=== PATIENT | female | born 1975 | race Caucasian/White ===

== ENCOUNTER → 2016-12-22 | Outpatient (CLI) | payer OTHER ==
--- NOTE | 2016-12-22 11:32 | REP ---
Clinical: Pain. Technique: AP and lateral views of the sacrum and coccyx. Findings: The sacrum and coccyx are intact. There is no evidence for acute fracture or subluxation. The sacroiliac joints are essentially normal for age. Impression: Normal sacrum and coccyx radiographs. Signed by Venkat Oconnor MD 12/22/2016 11:24 A
== END ==
LOC: M LRY 10:54
PROVIDERS: ATTEND Physician Assistant
DX: M53.3 Sacrococcygeal disorders, not elsewhere classified (principal)

== ENCOUNTER 2017-04-27 08:45 | Outpatient (RCR) | payer OTHER | END 2017-04-28 | disposition home or self-care (01) | LOC: M PT 08:45 | PROVIDERS: ATTEND Physician Assistant | DX: Z51.89 Encounter for other specified aftercare (principal); M53.3 Sacrococcygeal disorders, not elsewhere classified ==

== ENCOUNTER 2017-07-09 18:29 | Inpatient (IN) | payer OTHER ==
[~2017-07-09] VITALS: Ht 160 cm; Wt 93.6 kg
[2017-07-09] MEDS ORDERED: MULTCAP8 PO (18:41)
[2017-07-09 19:45] LABS: MEAN CORPUSCULAR HEMOGLOBIN 31.4 pg (27.0-33.0); MEAN CORPUSCULAR HGB CONC 35.7 g/dl (32.0-36.5); RED CELL DISTRIBUTION WIDTH 12.2 % (11.5-14.5); WHITE BLOOD COUNT 8.6 K/mm3 (4.0-10.0)
[2017-07-09 19:58] LABS: METHADONE URINE NEGATIVE (NEGATIVE)
[2017-07-09 20:10] LABS: ALBUMIN 4.2 GM/DL (3.2-5.2); ALKALINE PHOSPHATASE 79 U/L (45-117); ALT/SGPT 24 U/L (12-78); ANION GAP 7 MEQ/L (8-16); AST/SGOT 20 U/L (15-37); BILIRUBIN,DIRECT 0.1 MG/DL (0.0-0.2); BILIRUBIN,TOTAL 0.6 MG/DL (0.2-1.0); BLOOD UREA NITROGEN 9 MG/DL (7-18); CALCIUM LEVEL 8.9 MG/DL (8.5-10.1); CARBON DIOXIDE LEVEL 27 MEQ/L (21-32); CHLORIDE LEVEL 105 MEQ/L (98-107); CREATININE FOR GFR 0.71 MG/DL (0.55-1.02); GLOMERULAR FILTRATION RATE > 60.0 (>60); GLUCOSE, FASTING 85 MG/DL (70-105); POTASSIUM SERUM 3.8 MEQ/L (3.5-5.1); SODIUM LEVEL 139 MEQ/L (136-145); TOTAL PROTEIN 7.7 GM/DL (6.4-8.2)
[2017-07-09] MEDS ORDERED: VITMTA PO (20:31)
[2017-07-09] MEDS ORDERED: MAALOX 30 ML SUSP *UDC PO PRN (21:30)
[2017-07-09] MEDS ORDERED: ACETAMINOPHEN TAB 650MG DOSE (2X325MG) PO PRN (21:30)
[2017-07-09] MEDS ORDERED: MOM 30ML SUSPENSION UDC PO PRN (21:30)
[2017-07-09] MEDS ORDERED: traZODone 50 MG TAB PO PRN (21:30)
[2017-07-10 00:38] VITALS: BP 135/78
[2017-07-10] MEDS: MULTIVITAMINS/MINERALS THERAP 1 TAB PO SCH (08:47)
--- NOTE | 2017-07-10 08:59 | HPEPDOC ---
Medical History and Physical Date of Admission Jul 09, 2017 at 21:17 History and Physical PCP: Ishan MORRISON ATTENDING: Dr. Korey Faulkner HPI: 41 yoF admitted to [facility] for unspecified depressive disorder, being medically examined today. No acute medical complaints today. Denies any fevers, chills, weakness, fatigue, ERWIN, CP, SOB, cough, palpitations, abdominal pain, N/V /D or changes in bowel or bladder habits. PMHx: Vitamin D deficiency Depression Anxiety PSHX: Denies SOCHX: Resides in: [facility] Marital Status: Kids: 4 Employment: Unemployed Tobacco use: Denies ETOH: One drink or less per month Illicit Drugs: Denies IV Drug Use: Denies Tattoos done unprofessionally: Denies FAMHX: Mother: Alive, well Father: Alive, polycystic kidney disease Siblings: One brother Alive, bipolar disorder Children: Alive, well Unexpected deaths due to medical reasons: None. ROS: As noted in HPI, otherwise 11pt ROS of systems reviewed and remarkable only for LMP unknown. PE: GEN: 41 yo F, appears stated age. Well-nourished, well developed. No acute distress. Alert and oriented x 3. Pleasant, interactive. HEENT: Normocephalic, atraumatic. Pupils are equal, round, and reactive to light. Extraocular movements are intact. No nystagmus appreciated. Sclera are nonicteric. Conjunctiva without injection. Nose midline. Nasal turbinates without bogginess. EACs both patent BL. TMs both visualized and tobin with good cone of light, no bulging or erythema. No facial asymmetry. Moist mucous membranes. Dentition fair. Pharynx pink and moist, no cobblestoning. Neck supple , trachea midline. No lymphadenopathy or thyromegaly appreciated. CHEST: Regular rate and rhythm, +S1, +S2 LUNGS: Clear to auscultation bilaterally. No wheezes, rales, or rhonchi. Breathing appears symmetric and easy. Patient is speaking in full sentences. No accessory muscle use. ABD: Round, soft, non-tender, non-distended. +Bowel sounds throughout. No rebound or guarding. No costovertebral angle tenderness. EXT: Pulses 2+ bilaterally dorsalis pedis and radial. No lower extremity edema appreciated. SKIN: [place], dry, warm. Capillary refill <2sec. No rashes. NEURO: Alert and oriented x 3. Cranial nerves III-XII are intact. No focal deficits appreciated. EKG: pending A&P: 41 yoF admitted to [facility] for unspecified depressive disorder 1. Psych. Plan per Psychiatry. Obtain baseline EKG to assure the safety of psychiatric medications as they can prolong the QT interval. 2. Vitamin D deficiency. Patient takes [id number] supplement daily. Update vitamin D level. 3. Add hCG to labs. 4. Follow up with PCP on discharge. 5. Staff member Saige present throughout exam. Vital Signs Vital Signs Date Time Temp Pulse Resp B/P (MAP) Pulse Ox O2 Delivery O2 Flow Rate FiO2 07/10/17 00:38 98.1 66 20 135/78 (97) 99 Room Air Laboratory Data Labs 24H Laboratory Tests 2 07/09/17 19:25: Urine Amphetamines Screen NEGATIVE, Urine Benzodiazepines Screen NEGATIVE, Urine Opiates Screen NEGATIVE, Urine Methadone Screen NEGATIVE, Urine Barbiturates Screen NEGATIVE, Urine Phencyclidine Screen NEGATIVE, Urine Cocaine Metabolite Screen NEGATIVE, Urine Cannabinoids Screen NEGATIVE 07/09/17 19:26: Anion Gap 7L, Glomerular Filtration Rate > 60.0, Calcium Level 8.9, Aspartate Amino Transf (AST/SGOT) 20, Alanine Aminotransferase (ALT/SGPT) 24, Alkaline Phosphatase 79, Total Bilirubin 0.6, Direct Bilirubin 0.1, Total Protein 7.7, Albumin 4.2, Albumin/Globulin Ratio 1.20, Thyroid Stimulating Hormone (TSH) 1.940, Salicylates Level < 1.7L, Acetaminophen Level < 2.0L, Ethyl Alcohol Level < 0.003 CBC/BMP Laboratory Tests 07/09/17 19:26 Red Blood Count 4.51, Mean Corpuscular Volume 88.0, Mean Corpuscular Hemoglobin 31.4, Mean Corpuscular Hemoglobin Concent 35.7, Red Cell Distribution Width 12.2 Home Medications Scheduled Multivitamins *[facility] STOCKED* (Thera M Plus *[facility] STOCKED*) 1 Tab Tab, 1 TAB PO DAILY Allergies Coded Allergies: No Known Allergies (Unverified , 07/09/17) Katie Earl Jul 10, 2017 08:59 Tammy Rodríguez Jul 10, 2017 12:50
[2017-07-10] MEDS ORDERED: VITAMIN D 50,000 UNITS CAPSULE (ERGOCALCIFEROL 1.25MG) PO SCH (09:00)
[2017-07-10 09:08] LABS: CONTROL LINE HCG INT CTR LINE PRESENT
--- NOTE | 2017-07-10 09:36 | MHHPEPDOC ---
[facility] [place] History & Physical History and Physical DATE OF ADMISSION: Jul 09, 2017 at 21:17 LEGAL STATUS AT ADMISSION: 9.39 CHIEF COMPLAINT: "I'm just so tired". HISTORY OF THE PRESENT ILLNESS: Patient is a 41-year-old female, who presented to ED after argument with the day before. She asked him to leave due to his drinking. The next day she was sad and anxious and thought to kill herself by overdosing on Nyquil. She has 4 children who were not in the home at the time. Instead of harming self she came to us for help. This is her first psychiatric admission. Pt is to [place] for 20 years, who is recently retired from duty. He served in the [employer] for 17 years with 2 deployments to [place] and 1 to [place]. While on deployment he missed his last promotion which was a disappointment to him. Pt reports a noticeable increase in drinking after he returned home from each deployment. They had an agreement that he would drink 1- 2 beers on work nights and 4-5 on weekends. She suspects he drinks more than what is agreed as she observes him slurring his words, not always walking steadily, appears more intoxicated than he should with only 2 beers. She reports he drinks on an empty stomach and often seems like "he has had one too many". Pt and attend marriage counseling at [facility]. Pt does not like husbands drinking at all. Pt and have 2 biological children and 2 foster children who are biological siblings. pt attends [employer] faithfully with the children. She wants only good things for her family and shows much insight into husbands situation. They both came from broken homes and do not want to put their children through that. She recognizes that he may have PTSD and acknowledges that he "keeps everything in side". Pt is often "overwhelmed" by duties of raising 4 children and 1 with special needs who has cognitive impairment and suffered lots of trauma early in life. She does not sleep well. She has to fall asleep before her or his snoring will prevent her from falling asleep. Pt denies any physical abuse by toward her or children has ever occurred in their home. PSYCHIATRIC REVIEW OF SYSTEMS: Affective: calm Anxiety: moderate Trauma: denies physical and sexual abuse. Psychosis: denies Personally: easy to engage, pleasant. PAST PSYCHIATRIC HISTORY: Prior Psychiatric Disorder: none, in Marital counseling Outpatient Treatment:counseling, 1 year Suicidal/Self injurious: denies. Psychotropic Medication History: none. ALLERGIES: Please see below. FAMILY PSYCHIATRIC HISTORY: pt reports brother Eder with Bipolar disorder, Psychosis. Mom - depression and anxiety. ('s side has alcoholism - grandfather, father and cousin of Seferino. ) no family h/o suicide. SOCIAL HISTORY: Early Relations/development: 3 older brothers and 1 younger brother, parents when she was young. Raised by mother. 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 . Legal: none Martial: for 20 years. 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 Supports: friends, her [employer] Abuse/trauma:denies but was affected by parents divorce. SUBSTANCE ABUSE HISTORY: none. PAST MEDICAL/SURGICAL HISTORY: PE: GEN: 41 yo F, appears stated age. Well-nourished, well developed. No acute distress. Alert and oriented x 3. Pleasant, interactive. HEENT: Normocephalic, atraumatic. Pupils are equal, round, and reactive to light. Extraocular movements are intact. No nystagmus appreciated. Sclera are nonicteric. Conjunctiva without injection. Nose midline. Nasal turbinates without bogginess. EACs both patent BL. TMs both visualized and tobin with good cone of light, no bulging or erythema. No facial asymmetry. Moist mucous membranes. Dentition fair. Pharynx pink and moist, no cobblestoning. Neck supple , trachea midline. No lymphadenopathy or thyromegaly appreciated. CHEST: Regular rate and rhythm, +S1, +S2 LUNGS: Clear to auscultation bilaterally. No wheezes, rales, or rhonchi. Breathing appears symmetric and easy. Patient is speaking in full sentences. No accessory muscle use. ABD: Round, soft, non-tender, non-distended. +Bowel sounds throughout. No rebound or guarding. No costovertebral angle tenderness. EXT: Pulses 2+ bilaterally dorsalis pedis and radial. No lower extremity edema appreciated. SKIN: [place], dry, warm. Capillary refill <2sec. No rashes. NEURO: Alert and oriented x 3. Cranial nerves III-XII are intact. No focal deficits appreciated. EKG: pending A&P: [address] [facility] for unspecified depressive disorder 1. Psych. Plan per Psychiatry. Obtain baseline EKG to assure the safety of psychiatric medications as they can prolong the QT interval. 2. Vitamin D deficiency. Patient takes [id number] supplement daily. Update vitamin D level. 3. Add hCG to labs. 4. Follow up with PCP on discharge. NO SURGERIES. VITAL SIGNS: Temperature 98.1 , pulse 66, respiratory rate 20, blood pressure 135/78, pulse oximetry 99 % on room air. MENTAL STATUS EXAMINATION: General appearance: Patient is a 41-year old female, who is short, light colored hair, fair skin in hospital attire, good eye contact. Speech: clear, spontaneous Thought processes: goal directed Thought content: appropriate. Abstract reasoning and computation: good. Description of associations: good. Description of abnormal or psychotic thoughts: no longer thinking of suicide, denies psychotic symptoms, no mood instability. Judgment: good. Insight: good Orientation: well oriented x 3. Recent and remote memory: grossly intact. Attention span and concentration: good. Fund of knowledge: full. Mood: "sad" "tired" "overwhelmed" Affect: anxious. DIAGNOSES: 1. Premenstrual dysphoric disorder (PMDD) 2. Vitamin D deficiency. ASSESSMENT: Pt presents as a very caring and intelligent woman. She identifies a pattern in her as well as one in herself. For herself she can identify getting angry about 1-1.5 weeks prior to menses. In her she notices each month he becomes more withdrawn, displays more negative thinking and hypersensitivity at certain times of the month. If he is not drinking he is compulsive about playing video games. "He has an addictive personality". He was screened by the after each deployment and upon after 17 years. He then enrolled in the [employer] in order to qualify for a pension. He has not been treated or diagnosed with PTSD. He did see a counselor for a brief time in 2011 after returning from deployment. Pt denies anhedonia. Reports sleep problems of difficulty maintaining sleep after 4 hours. Awakens at every little sound due to children. Pt was found to have low Vitamin D and did take a weekly supplement but has gotten off of this. She agrees she needs to resume it. Pt reports poor energy, poor concentration She continues to maintain activities and interests. She reports a 55 lb weight increase over 6 years having moved from [place] to [place]. She states she craves sugar where she never did before. Pt reports they have a preparator for their home and are hoping to return to [place] in August. Pt encouraged to begin now to secure follow up once she moves. Pt hopes to be prepared for discharge on Monday. We will contact for family meeting that day and if she is doing well she may leave at that time. PROBLEM LIST: 1. risk for suicide 2. depression 3. anxiety INITIAL TREATMENT PLAN: 1. Patient was admitted on a 2. Complete history was obtained. 3. With patients permission, family will be contacted and database will be expanded. 4. Patients medication regimen will be reviewed and changed accordingly. 5. Patient will be provided with protected environment. 6. Patient will be treated with individual, group, and milieu therapies. 7. Patient will receive supportive psych-education. 8. Discharge planning will commence immediately. 9. Outpatient follow-up treatment will be strongly recommended. 10. The initial treatment plan will focus initially on: * see above ESTIMATED LENGTH OF STAY:6 DAYS. TIME SPENT COUNSELING AND COORDINATING INITIAL CARE: 50 minutes. Laboratory Data 24H Labs Laboratory Tests 2 07/09/17 19:25: Urine Amphetamines Screen NEGATIVE, Urine Benzodiazepines Screen NEGATIVE, Urine Opiates Screen NEGATIVE, Urine Methadone Screen NEGATIVE, Urine Barbiturates Screen NEGATIVE, Urine Phencyclidine Screen NEGATIVE, Urine Cocaine Metabolite Screen NEGATIVE, Urine Cannabinoids Screen NEGATIVE 07/09/17 19:26: Anion Gap 7L, Glomerular Filtration Rate > 60.0, Calcium Level 8.9, Aspartate Amino Transf (AST/SGOT) 20, Alanine Aminotransferase (ALT/SGPT) 24, Alkaline Phosphatase 79, Total Bilirubin 0.6, Direct Bilirubin 0.1, Total Protein 7.7, Albumin 4.2, Albumin/Globulin Ratio 1.20, Thyroid Stimulating Hormone (TSH) 1.940, Human Chorionic Gonadotropin, Qual NEGATIVE, Salicylates Level < 1.7L, Acetaminophen Level < 2.0L, Ethyl Alcohol Level < 0.003 CBC/BMP Laboratory Tests 07/09/17 19:26 Red Blood Count 4.51, Mean Corpuscular Volume 88.0, Mean Corpuscular Hemoglobin 31.4, Mean Corpuscular Hemoglobin Concent 35.7, Red Cell Distribution Width 12.2 Medications Scheduled Multivitamins *[facility] STOCKED* (Thera M Plus *[facility] STOCKED*) 1 Tab Tab, 1 TAB PO DAILY, (Reported) Allergies Coded Allergies: No Known Allergies (Unverified , 07/09/17) Tammy Rodríguez Jul 10, 2017 09:35
[2017-07-10] MEDS ORDERED: hydrOXYzine 25 MG TAB PO PRN (12:45)
[2017-07-10] MEDS: CitaloPRAM (CeleXA) 10 MG TABLET PO SCH (13:14)
[2017-07-10 18:00] VITALS: BP 123/70
--- NOTE | 2017-07-10 18:39 | ECGEPIP ---
Stationary ECG Study [facility] Test Date: 2017-07-10 Pat Name: NOLAN PINO Department: Room: [place] [address] Gender: F Editorial Manager: NICOL : 1975 Requested By: Katie Earl Order Number: [id number] Reading MD: Korey Faulkner Measurements Intervals [place] Rate: 78 P: 27 RI: 168 QRS: 23 QRSD: 92 T: 22 QT: 377 QTc: 430 Interpretive Statements SINUS RHYTHM previous tracing not on file Electronically Signed On 07-10-2017 18:39:09 EDT by Korey Faulkner
[2017-07-10] MEDS: hydrOXYzine 50 MG TAB PO SCH (21:00)
[2017-07-11 06:57] VITALS: BP 124/71
[2017-07-11] MEDS: MULTIVITAMINS/MINERALS THERAP 1 TAB PO SCH (08:45)
[2017-07-11] MEDS: CitaloPRAM (CeleXA) 10 MG TABLET PO SCH (08:46)
--- NOTE | 2017-07-11 13:28 | MHIPNPDOC ---
[facility] Progress Note Progress Note DATE OF SERVICE: 07/11/17 HISTORY: day 3 of admission for SI related to depression. VITAL SIGNS: See below. NEW TEST RESULTS: na CURRENT MEDICATIONS: See below. MENTAL STATUS EXAMINATION: General appearance: Patient is a 41-year old female, who is short, light colored hair, fair skin in hospital attire, good eye contact. Speech: clear, spontaneous Thought processes: goal directed Thought content: appropriate. Abstract reasoning and computation: good. Description of associations: good. Description of abnormal or psychotic thoughts: no longer thinking of suicide, denies psychotic symptoms, no mood instability. Judgment: good. Insight: good Orientation: well oriented x 3. Recent and remote memory: grossly intact. Attention span and concentration: good. Fund of knowledge: full. Mood: slowly improving, less depressed,"concerned" Affect: has range ASSESSMENT: Pt participated in treatment planning meeting. She is aware we are going to invite her to come in for a meeting prior to her discharge. Staff is to prepare information on Vivian for her. pt is using hydroxyzine with relief. Sleep was good last night. She is eating at meal time. Hygiene is good. Misses her children. DIAGNOSES: 1. Premenstrual dysphoric disorder (PMDD) 2. Vitamin D deficiency. MANAGEMENT PLAN: continue to monitor Celexa for side effects. Will raise dose to 20 mg if she does okay over 48 hours. Denies side effects so far. Provide hydroxyzine as needed for anxiety. TIME SPENT: 25 minutes. Vital Signs Vital Signs Date Time Temp Pulse Resp B/P (MAP) Pulse Ox O2 Delivery O2 Flow Rate FiO2 07/11/17 06:57 97.4 92 18 124/71 (88) Room Air 07/10/17 00:38 99 Current Medications Current Medications Acetaminophen (Tylenol Tab) 650 mg Q6HP PRN PO HEADACHE or DISCOMFORT; Start at 21:30; Stop 08/08/17 at 21:29 Al Hydrox/Mg Hydrox/Simethicone (Mylanta) 30 ml Q4HP PRN PO HEARTBURN/ INDIGESTION; Start 07/09/17 at 21:30; Stop 08/08/17 at 21:29 Citalopram Hydrobromide (CeleXA) 15 mg DAILY PO Last administered on 07/11/17t 08:46; Start 07/10/17 at 09:00; Stop 08/09/17 at 08:59 Home Med (Med Rec Complete!) ASDIRECTED XX ; Start 07/09/17 at 20:45; Stop 08/15 at 20:45; Status DC Hydroxyzine HCl (Atarax) 25 mg Q6HP PRN PO ANXIETY Last administered on 18:51; Start 07/10/17 at 12:45; Stop 08/09/17 at 12:44 Hydroxyzine HCl (Atarax) 50 mg QHS PO ; Start 07/10/17 at 21:00; Stop 08/09/17 at 20:59 Magnesium Hydroxide (Milk Of Magnesia) 30 ml DAILYPRN PRN PO CONSTIPATION; Start 07/09/17 at 21:30; Stop 08/08/17 at 21:29 Multivitamins (Theragram-M) 1 tab DAILY PO Last administered on 07/11/17 08:45 ; Start 07/10/17 at 09:00; Stop 08/09/17 at 08:59 Trazodone HCl (Desyrel) 50 mg QHSP PRN PO INSOMNIA; Start 07/09/17 at 21:30; Stop 08/08/17 at 21:29 Vitamin D (Drisdol) 50,000 units Mo@09 PO Last administered on 07/10/17 12:13 ; Start 07/10/17 at 09:00; Stop 08/09/17 at 08:59 Allergies Coded Allergies: No Known Allergies (Unverified , 07/09/17) Tammy Rodríguez Jul 11, 2017 13:28
[2017-07-11 18:00] VITALS: BP 122/78
[2017-07-11] MEDS: hydrOXYzine 50 MG TAB PO SCH (21:15)
[2017-07-12 06:50] VITALS: BP 131/84
--- NOTE | 2017-07-12 08:57 | MHIPNPDOC ---
[facility] Progress Note Progress Note DATE OF SERVICE: 07/12/17 HISTORY: day 4 of admission for SI due to stressors. VITAL SIGNS: See below. NEW TEST RESULTS: na CURRENT MEDICATIONS: See below. MENTAL STATUS EXAMINATION: General appearance: Patient is a 41-year old female, who is short, light colored hair, fair skin in hospital attire, good eye contact. Speech: clear, spontaneous Thought processes: goal directed Thought content: appropriate. Abstract reasoning and computation: good. Description of associations: good. Description of abnormal or psychotic thoughts: no longer thinking of suicide, denies psychotic symptoms, no mood instability. Judgment: good. Insight: good Orientation: well oriented x 3. Recent and remote memory: grossly intact. Attention span and concentration: good. Fund of knowledge: full. Mood: euthymic Affect: broad DIAGNOSES: 1. Premenstrual dysphoric disorder (PMDD) 2. Vitamin D deficiency by history ASSESSMENT: Pt has reported during admission process that she has concerns about feeling safe at home. She denies any physical abuse toward her or the children by her . She was mostly fearful of her own thoughts and that she might act on drinking excessive amounts of Nyquil. She said she actually went and stared at the Nyquil in the medicine cabinet. Today she does not fear she will do anything whatsoever to endanger herself or those around her. She reports benefit from hospitalization and group therapy. She also relies on her silverio to get her through difficult situations. MANAGEMENT PLAN: continue to monitor mood improvement, decreased anxiety, provide support for healthy communication with . pt will likely be discharged on Monday after family meeting. she feels she is approaching readiness but continues to benefit from group therapy and peer support. continue close observation. TIME SPENT: minutes. Vital Signs Vital Signs Date Time Temp Pulse Resp B/P (MAP) Pulse Ox O2 Delivery O2 Flow Rate FiO2 07/12/17 06:50 98.3 69 16 131/84 (100) Room Air 07/10/17 00:38 99 Current Medications Current Medications Acetaminophen (Tylenol Tab) 650 mg Q6HP PRN PO HEADACHE or DISCOMFORT; Start at 21:30; Stop 08/08/17 at 21:29 Al Hydrox/Mg Hydrox/Simethicone (Mylanta) 30 ml Q4HP PRN PO HEARTBURN/ INDIGESTION; Start 07/09/17 at 21:30; Stop 08/08/17 at 21:29 Citalopram Hydrobromide (CeleXA) 15 mg DAILY PO Last administered on 07/11/17 08:46; Start 07/10/17 at 09:00; Stop 07/12/17 at 08:53; Status DC Citalopram Hydrobromide (CeleXA) 20 mg DAILY PO ; Start 07/12/17 at 09:00; Stop 08/11/17 at 08:59; Status UNV Home Med (Med Rec Complete!) ASDIRECTED XX ; Start 07/09/17 at 20:45; Stop 08/15 at 20:45; Status DC Hydroxyzine HCl (Atarax) 25 mg Q6HP PRN PO ANXIETY Last administered on 18:51; Start 07/10/17 at 12:45; Stop 08/09/17 at 12:44 Hydroxyzine HCl (Atarax) 50 mg QHS PO Last administered on 07/11/17 21:15; Start 07/10/17 at 21:00; Stop 08/09/17 at 20:59 Magnesium Hydroxide (Milk Of Magnesia) 30 ml DAILYPRN PRN PO CONSTIPATION; Start 07/09/17 at 21:30; Stop 08/08/17 at 21:29 Multivitamins (Theragram-M) 1 tab DAILY PO Last administered on 07/11/17 08:45 ; Start 07/10/17 at 09:00; Stop 08/09/17 at 08:59 Trazodone HCl (Desyrel) 50 mg QHSP PRN PO INSOMNIA; Start 07/09/17 at 21:30; Stop 08/08/17 at 21:29 Vitamin D (Drisdol) 50,000 units Mo@09 PO Last administered on 07/10/17 12:13 ; Start 07/10/17 at 09:00; Stop 08/09/17 at 08:59 Allergies Coded Allergies: No Known Allergies (Unverified , 07/09/17) Tammy Rodríguez Jul 12, 2017 08:57
[2017-07-12] MEDS: MULTIVITAMINS/MINERALS THERAP 1 TAB PO SCH (09:59)
[2017-07-12] MEDS: CitaloPRAM (CeleXA) 20 MG TAB PO SCH (10:00)
[2017-07-12 18:00] VITALS: BP 163/91
[2017-07-12] MEDS: hydrOXYzine 50 MG TAB PO SCH (21:28)
[2017-07-13 06:25] VITALS: BP 136/80
--- NOTE | 2017-07-13 08:48 | MHIPNPDOC ---
[facility] Progress Note Progress Note DATE OF SERVICE: 07/13/17 HISTORY: day 5 of admission for SI after disagreement with . VITAL SIGNS: See below. NEW TEST RESULTS: na CURRENT MEDICATIONS: See below. MENTAL STATUS EXAMINATION: General appearance: Patient is a 41-year old female, who is short, light colored hair, fair skin in hospital attire, good eye contact. Speech: clear, spontaneous Thought processes: goal directed Thought content: appropriate. Abstract reasoning and computation: good. Description of associations: good. Description of abnormal or psychotic thoughts: no longer thinking of suicide, denies psychotic symptoms, no mood instability. Judgment: good. Insight: good Orientation: well oriented x 3. Recent and remote memory: grossly intact. Attention span and concentration: good. Fund of knowledge: full. Mood: euthymic Affect: broad DIAGNOSES: 1. Premenstrual dysphoric disorder (PMDD) 2. Vitamin D deficiency by history ASSESSMENT: visible in milieu, attending programming, coloring with peers, socializing appropriately. Pt reports good rest. Continues to tolerate Celexa well. Jake SI. Hygiene is good. Pt is not using hydroxyzine for sleep every night. MANAGEMENT PLAN: Plan is for discharge tomorrow after family meeting at 10 a.m. Pt will fu with PCP for meds and already has marital counseling scheduled. It is also recommended she attend [facility] for support and insight into living with alcohol within the family. no hydroxyzine use for several days. TIME SPENT: 15 minutes. Vital Signs Vital Signs Date Time Temp Pulse Resp B/P (MAP) Pulse Ox O2 Delivery O2 Flow Rate FiO2 07/13/17 06:25 98.2 72 18 136/80 (98) 07/12/17 06:50 Room Air 07/10/17 00:38 99 Current Medications Current Medications Acetaminophen (Tylenol Tab) 650 mg Q6HP PRN PO HEADACHE or DISCOMFORT; Start at 21:30; Stop 08/08/17 at 21:29 Al Hydrox/Mg Hydrox/Simethicone (Mylanta) 30 ml Q4HP PRN PO HEARTBURN/ INDIGESTION; Start 07/09/17 at 21:30; Stop 08/08/17 at 21:29 Citalopram Hydrobromide (CeleXA) 15 mg DAILY PO Last administered on 07/11/17t 08:46; Start 07/10/17 at 09:00; Stop 07/12/17 at 08:53; Status DC Citalopram Hydrobromide (CeleXA) 20 mg DAILY PO Last administered on 07/12/17 10:00; Start 07/12/17 at 09:00; Stop 08/11/17 at 08:59 Home Med (Med Rec Complete!) ASDIRECTED XX ; Start 07/09/17 at 20:45; Stop 08/15 at 20:45; Status DC Hydroxyzine HCl (Atarax) 25 mg Q6HP PRN PO ANXIETY Last administered on 18:51; Start 07/10/17 at 12:45; Stop 08/09/17 at 12:44 Hydroxyzine HCl (Atarax) 50 mg QHS PO Last administered on 07/12/17 21:28; Start 07/10/17 at 21:00; Stop 08/09/17 at 20:59 Magnesium Hydroxide (Milk Of Magnesia) 30 ml DAILYPRN PRN PO CONSTIPATION; Start 07/09/17 at 21:30; Stop 08/08/17 at 21:29 Multivitamins (Theragram-M) 1 tab DAILY PO Last administered on 07/12/17 09:59 ; Start 07/10/17 at 09:00; Stop 08/09/17 at 08:59 Trazodone HCl (Desyrel) 50 mg QHSP PRN PO INSOMNIA; Start 07/09/17 at 21:30; Stop 08/08/17 at 21:29 Vitamin D (Drisdol) 50,000 units Mo@09 PO Last administered on 07/10/17 12:13 ; Start 07/10/17 at 09:00; Stop 08/09/17 at 08:59 Allergies Coded Allergies: No Known Allergies (Unverified , 07/09/17) Tammy Rodríguez Jul 13, 2017 08:48
[2017-07-13] MEDS: CitaloPRAM (CeleXA) 20 MG TAB PO SCH (09:17)
[2017-07-13] MEDS: MULTIVITAMINS/MINERALS THERAP 1 TAB PO SCH (09:17)
[2017-07-13 18:00] VITALS: BP 139/74
[2017-07-13] MEDS: hydrOXYzine 50 MG TAB PO SCH (22:03)
[2017-07-14 06:49] VITALS: BP 133/82
[2017-07-14] MEDS: MULTIVITAMINS/MINERALS THERAP 1 TAB PO SCH (08:54)
[2017-07-14] MEDS: CitaloPRAM (CeleXA) 20 MG TAB PO SCH (08:54)
[2017-07-14] MEDS ORDERED: HYDR-3363 PO (09:03)
[2017-07-14] MEDS ORDERED: HYDRO50TAB PO (09:03)
[2017-07-14] MEDS ORDERED: CELE20TA PO (09:03)
--- NOTE | 2017-07-14 09:04 | MHDSPDOC ---
[facility] Discharge Summary Discharge Summary DATE OF ADMISSION: Jul 09, 2017 at 21:17 DATE OF DISCHARGE: Jul 14, 2017 DISCHARGE DIAGNOSES: PMDD Vitamin D deficiency REASON FOR ADMISSION: pt became overwhelmed at home and was upset at . considered killing herself with an overdose of Nyquil. Came to ED for evaluation and was admitted. CONSULTANTS INVOLVED: na TREATMENT AND PROGRESS ON THE UNIT : pt reports stressors at home related to raising 4 children. 2 are special needs. works FT and drinks frequently after work. They have an agreement about how much he should drink so he can be helpful when at home. Pt does not feel he has been honoring the agreement and is drinking more than she is comfortable with. They have been in marital counseling for some time already. This is the first psychiatric admission for this patient. HOSPITAL COURSE: pt was agreeable to SSRI and anxiolytic medication. She enjoyed good rest and attended therapeutic programming. She participated in treatment planning and discharge planning. She attended well to ADL's and took medication as prescribed. there were not issues with challenging behaviors. She verbalized a benefit to the skills she was talking about and hearing discussed in groups. She has a strong silverio and this is beneficial to her as well. DISCHARGE ASSESSMENT: during the family meeting prior to discharge she was able to verbalize her concerns to her . staff stressed that due to minor children being at home it is necessary for someone to take over in case Lary should become ill or be unable to function in her role due to illness or absence. The couple could have easily had an argument about the drinking but commercial loan underwriter interceded to stress safety as the concern and that they need to take full advantage of their therapy sessions to problem solve these issues. feels that even 1 drink makes his angry. They will need to sort this out in therapy. Pt is not suicidal or homicidal. She is looking forward to the reunion with her children but knows her life will become hectic soon after coming home. She is reminded to take time for herself and to keep her life balanced with relaxation and time for herself as a reasonable expectation. Pt had no questions about her medications. MENTAL STATUS EXAMINATION ON DISCHARGE: General appearance: Patient is a 41-year old female, who is short, light colored hair, fair skin in hospital attire, good eye contact. Speech: clear, spontaneous Thought processes: goal directed Thought content: appropriate. Abstract reasoning and computation: good. Description of associations: good. Description of abnormal or psychotic thoughts: no longer thinking of suicide, denies psychotic symptoms, no mood instability. Judgment: good. Insight: good Orientation: well oriented x 3. Recent and remote memory: grossly intact. Attention span and concentration: good. Fund of knowledge: full. Mood: euthymic Affect: broad MEDICATIONS ON DISCHARGE: - Celexa for depression and anxiety. - hydroxyzine for anxiety. AND FOR SLEEP prn for both PLAN/FOLLOWUP ARRANGEMENTS: Therapy and med mgt appt made for pt at her respective provider offices. MEDICAL RECOMMENDATIONS: A&P: [address] [facility] for unspecified depressive disorder 1. Psych. Plan per Psychiatry. Obtain baseline EKG to assure the safety of psychiatric medications as they can prolong the QT interval. 2. Vitamin D deficiency. Patient takes [id number] supplement daily. Update vitamin D level. 3. Add hCG to labs. 4. Follow up with PCP on discharge. The amount of time spent in the coordination of care for this patient was approximately 45 minutes. Vital Signs/I&Os Vital Signs Date Time Temp Pulse Resp B/P (MAP) Pulse Ox O2 Delivery O2 Flow Rate FiO2 07/14/17 06:49 99.3 75 16 133/82 (99) 07/12/17 06:50 Room Air 07/10/17 00:38 99 Medications Scheduled Citalopram Hydrobromide (Celexa) 20 Mg Tab, 20 MG PO DAILY for MOOD for 7 Days, #7 Hydroxyzine HCl (Hydroxyzine HCl) 50 Mg Tab, 50 MG PO QHS for INSOMNIA for 7 Days, #7 Multivitamins *[facility]OCK[facility]* (Thera M Plus *[facility]*) 1 Tab Tab, 1 TAB PO DAILY, (Reported) Scheduled PRN Hydroxyzine HCl (Hydroxyzine HCl) 25 Mg Tab, 25 MG PO Q6HP PRN for ANXIETY for 7 Days, #24 Allergies Coded Allergies: No Known Allergies (Unverified , 07/09/17) Tammy Rodríguez Jul 14, 2017 09:04
== END 2017-07-14 10:00 | disposition home or self-care (01) | DRG 753 ==
LOC: M ED 18:29 → M ED INP 21:17 → M PSY 23:33
PROVIDERS: ADMIT Psychiatry & Neurology Psychiatry; ATTEND Psychiatry & Neurology Psychiatry
DX: F32.81 Premenstrual dysphoric disorder (principal); E55.9 Vitamin D deficiency, unspecified; Z63.0 Problems in relationship with spouse or partner